=== PATIENT | male | born 1985 | race Caucasian/White ===

== ENCOUNTER → 2021-02-25 04:08 | Outpatient (CLI) | payer OTHER, SELFPAY ==
[2021-02-25 18:05] LABS: SARS-CoV-2 RNA PCR Negative
== END ==
PROVIDERS: PCP Physician Assistant; Visit Provider Physician Assistant
DX: Z20.822 Contact with and (suspected) exposure to COVID-19 (principal)
CPT/HCPCS: C9803; U0003; U0005

== ENCOUNTER 2023-09-19 08:38 | Emergency (ER) | payer OTHER, SELFPAY ==
[2023-09-19] VITALS (8 sets, daily range): BP systolic 117–128; BP diastolic 73–85; PULSE 66–74; RESP 15–20; TEMP 36.7; O2SAT 97–100
--- NOTE | ~2023-09-19 | XR_ITS ---
EXAMINATION: XR chest 2V 09/19/2023 09:27 INDICATION: Chest pain PROCEDURE: 2 view chest COMPARISON: No prior studies for comparison. FINDINGS: The lungs are clear. The cardiomediastinal silhouette is within normal limits. There are no pleural effusions. There is no pneumothorax suspected. IMPRESSION: 1: NO ACUTE CARDIOPULMONARY DISEASE. Reviewed, dictated and finalized at location B.
--- NOTE | ~2023-09-19 | CT_ITS ---
EXAMINATION: CTA chest DATE: 09/19/2023 10:33 INDICATION: Chest pain radiating to the back. TECHNIQUE: Computed tomographic angiography (CTA) of the chest was performed with 100 mL Omnipaque-35 0 intravenous contrast. Automated exposure control and iterative reconstruction technique were employ ed. The dose-length product was 214.88 mGy-cm. Maximum intensity projection 3D-reconstructions of the aorta and other arteries were constructed by the technologist on a separate workstation. COMPARISON: None. FINDINGS: The lungs demonstrate mild dependent atelectasis bilaterally. No pleural effusion. The hear t size is normal. No pericardial effusion. There is no pulmonary embolus. Thoracic aorta is normal. T here is a 6 mm hyperdense mass in right hepatic lobe, likely a hemangioma or focal nodular hyperplasi a in the absence of chronic liver disease or known malignancy. The bones are unremarkable. IMPRESSION: 1. Normal aorta. Reviewed, dictated and finalized at location A. IMPRESSION: 1. Normal aorta.
--- NOTE | 2023-09-19 08:52 | ECG_ITS ---
SEE SCANNED COPY FOR CONFIRMED REPORT MTDD
[2023-09-19] MEDS: ASPIRIN 81 MG CHEWABLE TABLET 324 MG PO (08:57)
[2023-09-19 08:59] LABS: Basophils Absolute Auto 0.1 K/mm3 (0.0-0.1); Basophils Percent Auto 0.6 % (0.2-1.2); Eosinophils Absolute Auto 0.4 K/mm3 (0-0.3); Eosinophils Percent Auto 3.7 % (0-4.4); Hematocrit 45.3 % (42.0-52.0); Hemoglobin 15.7 g/dL (14.0-18.0); Immature Granulocyte Absolute 0.02 K/mm3 (0.00-0.031); Immature Granulocyte Percent A 0.2 % (0-0.5); Lymphocytes Absolute Auto 1.45 K/mm3 (0.9-3.2); Lymphocytes Percent Auto 14.6 % (18.3-44.2); Mean Corpuscular HGB Conc 34.7 g/dl (32-36); Mean Corpuscular Hemoglobin 30.6 pg (26-34); Mean Corpuscular Volume 88.3 fl (80-100); Mean Platelet Volume 9.1 fl (7.4-10.4); Monocytes Absolute Auto 1.1 K/mm3 (0.1-0.6); Monocytes Percent Auto 11.2 % (2.6-8.5); Neutrophils Absolute Auto 6.9 K/mm3 (1.3-6.7); Neutrophils Percent Auto 69.7 % (45.5-73.1); Platelet Count Result 307 k/mm3 (150-375); Red Blood Count 5.13 M/mm3 (4.6-6.20); White Blood Count 9.9 K/mm3 (4.5-10.0)
[2023-09-19 09:09] LABS: Alanine Aminotransferase 22 U/L (6-50); Albumin Level 4.8 g/dL (3.5-5.1); Alkaline Phosphatase 43 U/L (38-126); Anion Gap 5 mmol/L (4-12); Aspartate Amino Transferase 30 U/L (17-59); Bilirubin,Total 0.6 mg/dL (0.2-1.3); Blood Urea Nitrogen 15 mg/dL (9-20); Calcium 9.5 mg/dL (8.4-10.2); Carbon Dioxide 27 mmol/L (22-30); Chloride 106 mmol/L (98-107); Estimated CRCL calculation 84 ml/min; Estimated Glomerular Filt Rate > 60; Glucose 100 mg/dL (65-110); INR 0.9; Lipase 62 U/L (23-300); Prothrombin Time 12.5 Seconds (11.1-14.7); Sodium 138 mmol/L (137-145)
[2023-09-19 09:10] LABS: Partial Thromboplastin Time 26.5 Seconds (22.3-36.8)
[2023-09-19 09:21] LABS: Troponin I < 0.012 ng/mL (0.000-0.034)
--- NOTE | 2023-09-19 10:09 | ED.CHESTPAIN ---
HPI - Chest Pain General Chief Complaint: Chest Pain Stated Complaint: chest pain Time Seen by Provider: 09/19/23 09:16 Source: patient and family ( and mother) Mode of arrival: ambulatory Limitations: no limitations History of Present Illness HPI narrative: Patient presents with chest pain starting at 7am. Described as tightness. He feels it in his throat. Described as achy and stabbing, 8 out of 10 in severity, constant. Radiates to his back between his shoulder blades. Had a panic attack last night but this had resolved before this pain. Associated with shortness of breath and cough. No fever or edema. No pain medication taken yet. This has not happened before. 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 No history of HTN. Diagnosed with HLD; on a statin. <1/2 PPD smoker. Trying to re-establish with his PCP (changed location). No recent surgery. No prior PE or DVT. Not on hormones. Previously on Lexapro for depression and is out of another medication he used to take for anxiety (can't remember). Related Data Allergies Allergy/AdvReac Type Severity Reaction Status Date / Time No Known Allergies Allergy Verified 09/19/23 08:52 [facility] Past Medical History Medical History (Updated 09/19/23 @ 22:27 by Tatum Tian MD) Anxiety Depression HLD (hyperlipidemia) Social History Social History (Updated 09/19/23 @ 22:28 by Tatum Tian MD) Smoking packs per day: 0.4 Smoking cigarettes per day: 8.0 Living arrangements: with family Exam Narrative: GENERAL: Well-appearing, well-nourished, and in no acute distress. HEAD: Normocephalic, atraumatic. EYES: Non injected, non icteric ENT: Nares clear, no rhinorrhea or epistaxis. NECK: Supple. CHEST: Speaking in full sentences. No respiratory distress. Lungs clear to auscultation bilaterally. HEART: Regular rate and rhythm. . ABDOMEN: Soft, nondistended. EXTREMITIES: Normal range of motion. No LE edema. SKIN: Warm, dry, no rash. NEURO: No focal deficits. Alert and oriented x3. PSYCH: Normal mood and affect. Course Vital Signs Vital signs: Vital Signs Temperature 98.0 F 09/19/23 08:45 Pulse Rate 73 09/19/23 08:45 Respiratory Rate 20 09/19/23 08:45 Blood Pressure 121/84 09/19/23 08:45 Pulse Oximetry 97 09/19/23 08:45 Oxygen Delivery Room Air 09/19/23 08:45 Temperature 98.0 F 09/19/23 08:45 Pulse Rate 68 09/19/23 13:58 Respiratory Rate 17 09/19/23 13:58 Blood Pressure 117/73 09/19/23 13:58 Pulse Oximetry 98 09/19/23 13:58 Oxygen Delivery Room Air 09/19/23 08:50 MDM - Chest Pain MDM Narrative Medical decision making narrative: Patient presents with chest pain and shortness of breath. In the emergency department they are afebrile with vital signs within normal limits. PERC score negative so will defer dimer to evaluate for PE but will obtain CT to evaluate to dissection. RN had applied oxygen for comfort after discussing with me; patient not hypoxic. Work up unremarkable. Negative troponin x2. Discussed with patient what conditions had been ruled out and the need for outpatient follow up with PCP. Given cardiology referral. Differential Diagnosis Differential diagnosis: Likely pneumothorax, stable angina, unstable angina pectoris, atypical chest pain, st elevation myocardial infarction, chest pain, biliary colic and other (considered PE; aortic dissection; MSK; GI etiology; panic attack; acute viral syndrome) Lab Data Attestation: I reviewed the patient's lab results. 09/19/23 08:54 09/19/23 08:54 Labs: Lab Results 09/19/23 09/19/23 09/19/23 Range/Units 08:54 10:46 12:01 WBC 9.9 (4.5-10.0) K/mm3 RBC 5.13 (4.6-6.20) M/mm3 Hgb 15.7 (14.0-18.0) g/dL Hct 45.3 (42.0-52.0) % MCV 88.3 (80-100) fl MCH 30.6 (26-34) pg MCHC 34.7 (32-36) g/dl RDW 12.0 (11.5-14.5) % Plt Count 307 (150-375) k/
[2023-09-19] MEDS: ACETAMINOPHEN 500 MG TABLET 1000 MG PO (10:46)
[2023-09-19] MEDS: BELLADONNA ALK/PHENOB ELIX 10 ML, MAG HYDROX/ALUMINUM HYD/SIMETH 30 ML, LIDOCAINE HCL 2... PO (10:47)
[2023-09-19 11:27] LABS: Influenza A QL RT-PCR Negative (Negative); Influenza B QL RT-PCR Negative (Negative); RSV RNA, RT-PCR Negative (Negative); SARS-CoV-2 RNA PCR Negative (Negative)
[2023-09-19 12:12] LABS: Monoscreen Negative (Negative); Negative Monotest Control Negative (Negative); Positive Monotest Control Positive (Positive)
[2023-09-19 12:39] LABS: Troponin I < 0.012 ng/mL (0.000-0.034)
[2023-09-19] MEDS: KETOROLAC 15 MG/ML VIAL (*BKC) IV PUSH (13:20)
--- NOTE | 2023-09-20 12:07 | ECG_ITS ---
SEE SCANNED COPY FOR CONFIRMED REPORT MTDD
== END 2023-09-19 14:00 | disposition home or self-care (01) ==
PROVIDERS: Emergency Provider Student in an Organized Health Care Education/Training Program; PCP Physician Assistant
DX: R07.9 Chest pain, unspecified (principal); D72.820 Lymphocytosis (symptomatic); D72.821 Monocytosis (symptomatic); Z20.822 Contact with and (suspected) exposure to COVID-19; E78.5 Hyperlipidemia, unspecified; F32.A Depression, unspecified; F41.9 Anxiety disorder, unspecified; F17.210 Nicotine dependence, cigarettes, uncomplicated; R94.31 Abnormal electrocardiogram [ECG] [EKG]
CPT/HCPCS: 36415; 71046; 71275; 80053; 83690; 84484; 85025; 85610; 85730; 86308; 87637; 93005; 96374; 99284; A9270; J1885; Q9967